=== PATIENT | male | born 1955 | race Caucasian/White ===

== ENCOUNTER 2020-11-28 12:36 | Inpatient (IN) | payer MEDICARE, MEDICAID ==
[2020-11-28] VITALS (8 sets, daily range): BP systolic 121–153; BP diastolic 66–77
[~2020-11-28] VITALS: Ht 177.8 cm; Wt 79.7 kg
[2020-11-28] MEDS ORDERED: IOHEXOL 300 MG/ML 50 ML VIAL ONE ×2 (12:52→14:45)
[2020-11-28] MEDS ORDERED: HEPARIN SODIUM 1000 UNITS/NS 0 ML ONE (12:52)
[2020-11-28] MEDS ORDERED: IOHEXOL 300 MG/ML 100 ML VIAL ONE ×2 (12:52→14:45)
[2020-11-28] MEDS ORDERED: IOHEXOL 300 MG/ML 150 ML VIAL ONE ×3 (12:52→15:47)
[2020-11-28] MEDS ORDERED: LIDOCAINE/PF 1% 30 ML VIAL ONE ×3 (12:52→15:32)
[2020-11-28] MEDS ORDERED: SODIUM BICARBONATE 50 MEQ/50 ML VIAL ONE ×2 (12:52→14:45)
[2020-11-28] MEDS ORDERED: SITA1TAB6 PO (12:56)
[2020-11-28] MEDS ORDERED: GLIM4 PO (12:56)
[2020-11-28] MEDS ORDERED: LISI-894 PO (12:56)
[2020-11-28] MEDS ORDERED: ONDANSETRON HCL 4 MG/2 ML VIAL IVP PRN ×2 (13:00→14:30)
[2020-11-28] MEDS ORDERED: ACETAMINOPHEN 325 MG TABLET PO PRN ×2 (13:00→14:30)
[2020-11-28 13:22] LABS: GLUCOMETER DEV NAME(LOC) ERT.5; GLUCOSE,POINT OF CARE 144 MG/DL (70-110)
[2020-11-28 13:38] LABS: BASOPHILS % (AUTO) 0.3 % (0.0-2.0); EOSINOPHILS % (AUTO) 1.2 % (1.0-6.0); HEMATOCRIT 48.5 % (41-53); HEMOGLOBIN 15.9 g/dL (13.5-17.5); LYMPHOCYTES # (AUTO) 2.3 K/uL (1.0-4.8); MEAN CORPUSCULAR HEMOGLOBIN 28.6 pg (26.0-34.0); MEAN CORPUSCULAR HGB CONC 32.8 G/dL (31.0-37.0); MEAN CORPUSCULAR VOLUME 87 fL (80-100); MONOCYTES % (AUTO) 7.7 % (2.0-9.0); NEUTROPHILS # (AUTO) 9.2 K/uL (1.8-7.7); NEUTROPHILS % (AUTO) 72.8 % (40.0-70.0); PLATELET COUNT (AUTO) 145 K/uL (150-450); RED BLOOD CELL COUNT(AUTO) 5.57 MIL/uL (4.50-5.90); RED CELL DISTRIBUTION WIDTH 13.7 % (11.5-14.5)
[2020-11-28 13:52] LABS: ANION GAP 5 mmol/L (8-16); CALCIUM, TOTAL 8.6 mg/dL (8.8-10.5); CARBON DIOXIDE 28 mmol/L (22-29); CHLORIDE 103 mmol/L (98-107); CREATININE 1.02 mg/dL (0.60-1.30); GLOMERULAR FILTR. RATE CALC > 60 mL/min (>60); GLUCOSE,RANDOM 155 mg/dL (70-110); POTASSIUM 3.7 mmol/L (3.5-5.1); SODIUM SERUM 136 mmol/L (136-145); UREA NITROGEN, BLOOD 19 mg/dL (7-18)
[2020-11-28 13:59] LABS: ALANINE AMINOTRANSFERASE 42 U/L (12-78); ALBUMIN 3.3 g/dL (3.4-5.0); ALKALINE PHOSPHATASE 127 U/L (46-116); ASPARTATE AMINOTRANSFERASE 135 U/L (15-37); BILIRUBIN,TOTAL 0.9 mg/dL (0.1-1.0); TOTAL PROTEIN, SERUM 7.2 g/dL (6.4-8.2)
[2020-11-28] MEDS ORDERED: DEXTROSE 50%-WATER 25 GM/50 ML SYRINGE IVP PRN (14:15)
[2020-11-28] MEDS ORDERED: SIMV-43 PO (14:20)
[2020-11-28] MEDS ORDERED: CYCL1DRO6 OU (14:20)
[2020-11-28] MEDS ORDERED: MORPHINE SULFATE 2 MG/ML SYRINGE IVP PRN (14:30)
[2020-11-28] MEDS ORDERED: HEPARIN SODIUM 1000 UNITS/NS 1,000 ML ONE (14:45)
[2020-11-28 15:10] LABS: INR 1.1 (0.9-1.1); PROTHROMBIN TIME 11.4 SEC (9.4-11.6)
[2020-11-28] MEDS ORDERED: FentaNYL CITRATE PF 100 MCG/2 ML VIAL ONE ×2 (15:32→16:14)
[2020-11-28] MEDS ORDERED: MIDAZOLAM HCL 2 MG/2 ML VIAL ONE ×2 (15:32→16:15)
[2020-11-28] MEDS ORDERED: LIDOCAINE 1% 30 ML/SOD BICARB 8.4% 4 ML SQ ONE (15:45)
[2020-11-28] MEDS ORDERED: SODIUM CHLORIDE 0.9% 500 ML IV ONE (15:45)
[2020-11-28] MEDS ORDERED: IOHEXOL 300 MG/ML 150 ML VIAL IARTER ONE (15:45)
[2020-11-28] MEDS ORDERED: MIDAZOLAM HCL 2 MG/2 ML VIAL IVP ONE ×3 (15:45→16:15)
[2020-11-28] MEDS ORDERED: HEPARIN SODIUM 1000 UNITS/NS 1,000 ML IARTER ONE (15:45)
[2020-11-28] MEDS ORDERED: FentaNYL CITRATE PF 100 MCG/2 ML VIAL IVP ONE ×3 (15:45→16:15)
[2020-11-28] MEDS ORDERED: TICAGRELOR 90 MG TABLET ONE (16:21)
[2020-11-28] MEDS ORDERED: HEPARIN SODIUM,PORCINE 5,000 UNITS/ML VIAL IVP ONE (16:45)
[2020-11-28 17:37] LABS: GLUCOMETER DEV NAME(LOC) 5N.3; GLUCOSE,POINT OF CARE 176 MG/DL (70-110)
[2020-11-28] MEDS: INSULIN LISPRO 100 UNITS/ML SQ PRN ×2 (18:08→21:56)
[2020-11-28] MEDS: DOCUSATE SODIUM 100 MG CAPSULE PO SCH (20:03)
[2020-11-28] MEDS: CARVEDILOL 6.25 MG TABLET PO SCH (20:03)
[2020-11-28] MEDS: ATORVASTATIN CALCIUM 40 MG TABLET PO SCH (20:03)
[2020-11-28] MEDS: FAMOTIDINE 20 MG TABLET PO SCH (20:03)
[2020-11-28] MEDS: TICAGRELOR 90 MG TABLET PO SCH (21:45)
[2020-11-28 22:03] LABS: GLUCOMETER DEV NAME(LOC) 5S.1; GLUCOSE,POINT OF CARE 153 MG/DL (70-110)
[2020-11-29] VITALS (7 sets, daily range): BP systolic 128–156; BP diastolic 70–89
[2020-11-29] MEDS: FAMOTIDINE 20 MG TABLET PO SCH ×2 (09:10→20:21)
[2020-11-29] MEDS: CARVEDILOL 6.25 MG TABLET PO SCH ×2 (09:10→20:21)
[2020-11-29] MEDS: DOCUSATE SODIUM 100 MG CAPSULE PO SCH ×2 (09:10→20:21)
[2020-11-29] MEDS: TICAGRELOR 90 MG TABLET PO SCH ×2 (09:10→20:21)
[2020-11-29] MEDS: INSULIN LISPRO 100 UNITS/ML SQ PRN ×3 (11:37→20:58)
[2020-11-29 12:13] LABS: BASOPHILS % (AUTO) 0.6 % (0.0-2.0); EOSINOPHILS % (AUTO) 1.6 % (1.0-6.0); HEMATOCRIT 47.4 % (41-53); HEMOGLOBIN 15.7 g/dL (13.5-17.5); LYMPHOCYTES # (AUTO) 2.1 K/uL (1.0-4.8); LYMPHOCYTES % (AUTO) 18.9 % (22.0-44.0); MEAN CORPUSCULAR HEMOGLOBIN 28.7 pg (26.0-34.0); MEAN CORPUSCULAR VOLUME 87 fL (80-100); MONOCYTES # (AUTO) 0.9 K/uL (0.1-1.0); MONOCYTES % (AUTO) 7.7 % (2.0-9.0); NEUTROPHILS # (AUTO) 7.9 K/uL (1.8-7.7); NEUTROPHILS % (AUTO) 71.2 % (40.0-70.0); PLATELET COUNT (AUTO) 139 K/uL (150-450); RED BLOOD CELL COUNT(AUTO) 5.45 MIL/uL (4.50-5.90); RED CELL DISTRIBUTION WIDTH 13.8 % (11.5-14.5)
[2020-11-29 12:21] LABS: ANION GAP 4 mmol/L (8-16); CALCIUM, TOTAL 8.2 mg/dL (8.8-10.5); CARBON DIOXIDE 28 mmol/L (22-29); CHLORIDE 102 mmol/L (98-107); CREATININE 1.08 mg/dL (0.60-1.30); GLOMERULAR FILTR. RATE CALC > 60 mL/min (>60); GLUCOSE,RANDOM 158 mg/dL (70-110); POTASSIUM 3.8 mmol/L (3.5-5.1); SODIUM SERUM 134 mmol/L (136-145); UREA NITROGEN, BLOOD 18 mg/dL (7-18)
[2020-11-29 12:22] LABS: GLUCOMETER DEV NAME(LOC) 5S.1; GLUCOSE,POINT OF CARE 151 MG/DL (70-110)
[2020-11-29 12:28] LABS: ALANINE AMINOTRANSFERASE 36 U/L (12-78); ALBUMIN 2.9 g/dL (3.4-5.0); ALKALINE PHOSPHATASE 116 U/L (46-116); ASPARTATE AMINOTRANSFERASE 80 U/L (15-37); BILIRUBIN,TOTAL 1.2 mg/dL (0.1-1.0); TOTAL PROTEIN, SERUM 6.7 g/dL (6.4-8.2)
[2020-11-29 19:47] LABS: GLUCOMETER DEV NAME(LOC) 5N.1C; GLUCOSE,POINT OF CARE 116 MG/DL (70-110)
[2020-11-29 19:48] LABS: GLUCOMETER DEV NAME(LOC) 5N.1C; GLUCOSE,POINT OF CARE 167 MG/DL (70-110)
[2020-11-29] MEDS: ATORVASTATIN CALCIUM 40 MG TABLET PO SCH (20:21)
[2020-11-29 21:37] LABS: GLUCOMETER DEV NAME(LOC) 5S.1; GLUCOSE,POINT OF CARE 200 MG/DL (70-110)
[2020-11-29] MEDS ORDERED: LOSA25TA21 PO (23:50)
[2020-11-30] MEDS: INSULIN LISPRO 100 UNITS/ML SQ PRN ×4 (05:58→20:50)
[2020-11-30 06:06] VITALS: BP 157/83
[2020-11-30 06:17] LABS: GLUCOMETER DEV NAME(LOC) 5S.2B; GLUCOSE,POINT OF CARE 149 MG/DL (70-110)
[2020-11-30 07:09] VITALS: BP 160/85
[2020-11-30] MEDS: FAMOTIDINE 20 MG TABLET PO SCH ×2 (08:05→20:38)
[2020-11-30] MEDS: DOCUSATE SODIUM 100 MG CAPSULE PO SCH ×2 (08:05→20:38)
[2020-11-30] MEDS: TICAGRELOR 90 MG TABLET PO SCH ×2 (08:05→20:40)
[2020-11-30] MEDS: CARVEDILOL 6.25 MG TABLET PO SCH (08:05)
[2020-11-30] MEDS ORDERED: CARVEDILOL 6.25 MG TABLET PO ONE (10:00)
[2020-11-30 11:53] VITALS: BP 151/77
[2020-11-30 12:34] LABS: GLUCOMETER DEV NAME(LOC) 5S.1; GLUCOSE,POINT OF CARE 137 MG/DL (70-110)
[2020-11-30 12:34] LABS: GLUCOMETER DEV NAME(LOC) 5S.1; GLUCOSE,POINT OF CARE 229 MG/DL (70-110)
[2020-11-30 15:11] VITALS: BP 152/74
[2020-11-30 15:21] LABS: COVID AG,FIA SOURCE NASOPHARYNGEAL
[2020-11-30 19:16] VITALS: BP 147/81
[2020-11-30] MEDS: CARVEDILOL 12.5 MG TABLET PO SCH (20:38)
[2020-11-30] MEDS: ATORVASTATIN CALCIUM 40 MG TABLET PO SCH (20:38)
[2020-11-30 23:14] VITALS: BP 144/75
[2020-12-01 05:10] VITALS: BP 153/78
[2020-12-01 07:31] LABS: BASOPHILS % (AUTO) 0.6 % (0.0-2.0); EOSINOPHILS % (AUTO) 3.2 % (1.0-6.0); HEMATOCRIT 48.7 % (41-53); LYMPHOCYTES # (AUTO) 1.7 K/uL (1.0-4.8); LYMPHOCYTES % (AUTO) 14.2 % (22.0-44.0); MEAN CORPUSCULAR HEMOGLOBIN 28.4 pg (26.0-34.0); MEAN CORPUSCULAR HGB CONC 32.9 G/dL (31.0-37.0); MEAN CORPUSCULAR VOLUME 86 fL (80-100); MONOCYTES # (AUTO) 1.1 K/uL (0.1-1.0); MONOCYTES % (AUTO) 9.1 % (2.0-9.0); NEUTROPHILS # (AUTO) 8.6 K/uL (1.8-7.7); NEUTROPHILS % (AUTO) 72.9 % (40.0-70.0); PLATELET COUNT (AUTO) 165 K/uL (150-450); RED BLOOD CELL COUNT(AUTO) 5.65 MIL/uL (4.50-5.90); RED CELL DISTRIBUTION WIDTH 13.7 % (11.5-14.5)
[2020-12-01 07:39] VITALS: BP 148/82
[2020-12-01 07:40] LABS: ANION GAP 10 mmol/L (8-16); CALCIUM, TOTAL 9.1 mg/dL (8.8-10.5); CARBON DIOXIDE 26 mmol/L (22-29); CHLORIDE 100 mmol/L (98-107); CREATININE 0.99 mg/dL (0.60-1.30); GLOMERULAR FILTR. RATE CALC > 60 mL/min (>60); GLUCOSE,RANDOM 128 mg/dL (70-110); POTASSIUM 3.6 mmol/L (3.5-5.1); SODIUM SERUM 136 mmol/L (136-145); UREA NITROGEN, BLOOD 22 mg/dL (7-18)
[2020-12-01 07:46] LABS: ALANINE AMINOTRANSFERASE 38 U/L (12-78); ALBUMIN 3.2 g/dL (3.4-5.0); ALKALINE PHOSPHATASE 151 U/L (46-116); ASPARTATE AMINOTRANSFERASE 52 U/L (15-37); BILIRUBIN,TOTAL 1.2 mg/dL (0.1-1.0); TOTAL PROTEIN, SERUM 7.2 g/dL (6.4-8.2)
[2020-12-01] MEDS: CARVEDILOL 12.5 MG TABLET PO SCH ×2 (10:43→20:06)
[2020-12-01] MEDS: TICAGRELOR 90 MG TABLET PO SCH ×2 (10:43→20:06)
[2020-12-01] MEDS: FAMOTIDINE 20 MG TABLET PO SCH ×2 (10:43→20:06)
[2020-12-01] MEDS: DOCUSATE SODIUM 100 MG CAPSULE PO SCH ×2 (10:43→20:05)
[2020-12-01 11:03] VITALS: BP 151/91
[2020-12-01] MEDS: INSULIN LISPRO 100 UNITS/ML SQ PRN ×3 (12:04→20:07)
[2020-12-01 15:08] VITALS: BP 150/77
[2020-12-01] MEDS ORDERED: NEOMYCIN/BACITRACIN/POLYMYXIN B OINTMENT PACKET TP ONE (17:15)
[2020-12-01 18:15] LABS: GLUCOMETER DEV NAME(LOC) 5S.1; GLUCOSE,POINT OF CARE 226 MG/DL (70-110)
[2020-12-01 18:15] LABS: GLUCOMETER DEV NAME(LOC) 5S.1; GLUCOSE,POINT OF CARE 210 MG/DL (70-110)
[2020-12-01 18:16] LABS: GLUCOMETER DEV NAME(LOC) 5S.1; GLUCOSE,POINT OF CARE 189 MG/DL (70-110)
[2020-12-01 18:16] LABS: GLUCOMETER DEV NAME(LOC) 5S.1; GLUCOSE,POINT OF CARE 126 MG/DL (70-110)
[2020-12-01 18:20] LABS: GLUCOMETER DEV NAME(LOC) 5S.1; GLUCOSE,POINT OF CARE 253 MG/DL (70-110)
[2020-12-01 19:47] VITALS: BP 152/75
[2020-12-01] MEDS: ATORVASTATIN CALCIUM 40 MG TABLET PO SCH (20:05)
[2020-12-01] MEDS ORDERED: LIDOCAINE 1% 20 ML VIAL SQ ONE (20:30)
[2020-12-02] VITALS (7 sets, daily range): BP systolic 114–153; BP diastolic 64–78
[2020-12-02 01:03] LABS: GLUCOMETER DEV NAME(LOC) 5N.1C; GLUCOSE,POINT OF CARE 257 MG/DL (70-110)
[2020-12-02] MEDS: INSULIN LISPRO 100 UNITS/ML SQ PRN ×4 (05:53→21:23)
[2020-12-02 06:39] LABS: GLUCOMETER DEV NAME(LOC) 5S.1; GLUCOSE,POINT OF CARE 212 MG/DL (70-110)
[2020-12-02] MEDS: CARVEDILOL 12.5 MG TABLET PO SCH ×2 (09:16→21:21)
[2020-12-02] MEDS: DOCUSATE SODIUM 100 MG CAPSULE PO SCH ×2 (09:16→21:20)
[2020-12-02] MEDS: TICAGRELOR 90 MG TABLET PO SCH ×2 (09:16→21:20)
[2020-12-02] MEDS: FAMOTIDINE 20 MG TABLET PO SCH ×2 (09:16→21:20)
[2020-12-02 13:52] LABS: GLUCOMETER DEV NAME(LOC) 5S.2B; GLUCOSE,POINT OF CARE 210 MG/DL (70-110)
[2020-12-02] MEDS: ATORVASTATIN CALCIUM 40 MG TABLET PO SCH (21:20)
[2020-12-02 22:06] LABS: GLUCOMETER DEV NAME(LOC) 5S.1; GLUCOSE,POINT OF CARE 195 MG/DL (70-110)
[2020-12-02 22:06] LABS: GLUCOMETER DEV NAME(LOC) 5S.1; GLUCOSE,POINT OF CARE 258 MG/DL (70-110)
[2020-12-03 04:13] VITALS: BP 154/78
[2020-12-03] MEDS: INSULIN LISPRO 100 UNITS/ML SQ PRN ×4 (06:31→21:41)
[2020-12-03 07:42] VITALS: BP 138/78
[2020-12-03] MEDS: FAMOTIDINE 20 MG TABLET PO SCH ×2 (08:34→21:05)
[2020-12-03] MEDS: DOCUSATE SODIUM 100 MG CAPSULE PO SCH ×2 (08:34→21:05)
[2020-12-03] MEDS: TICAGRELOR 90 MG TABLET PO SCH ×2 (08:34→21:05)
[2020-12-03] MEDS: CARVEDILOL 12.5 MG TABLET PO SCH ×2 (08:34→21:05)
[2020-12-03 10:38] LABS: BASOPHILS % (AUTO) 0.6 % (0.0-2.0); EOSINOPHILS % (AUTO) 2.6 % (1.0-6.0); HEMATOCRIT 48.7 % (41-53); HEMOGLOBIN 16.3 g/dL (13.5-17.5); LYMPHOCYTES # (AUTO) 1.5 K/uL (1.0-4.8); MEAN CORPUSCULAR HGB CONC 33.5 G/dL (31.0-37.0); MEAN CORPUSCULAR VOLUME 86 fL (80-100); MONOCYTES # (AUTO) 1.1 K/uL (0.1-1.0); MONOCYTES % (AUTO) 8.1 % (2.0-9.0); NEUTROPHILS # (AUTO) 10.3 K/uL (1.8-7.7); NEUTROPHILS % (AUTO) 77.7 % (40.0-70.0); PLATELET COUNT (AUTO) 186 K/uL (150-450); RED BLOOD CELL COUNT(AUTO) 5.63 MIL/uL (4.50-5.90); RED CELL DISTRIBUTION WIDTH 13.6 % (11.5-14.5)
[2020-12-03 10:51] VITALS: BP 154/79
[2020-12-03 10:54] LABS: ANION GAP 8 mmol/L (8-16); CALCIUM, TOTAL 8.9 mg/dL (8.8-10.5); CARBON DIOXIDE 27 mmol/L (22-29); CHLORIDE 99 mmol/L (98-107); CREATININE 1.13 mg/dL (0.60-1.30); GLOMERULAR FILTR. RATE CALC > 60 mL/min (>60); GLUCOSE,RANDOM 188 mg/dL (70-110); POTASSIUM 3.9 mmol/L (3.5-5.1); SODIUM SERUM 134 mmol/L (136-145); UREA NITROGEN, BLOOD 24 mg/dL (7-18)
[2020-12-03 11:02] LABS: ALANINE AMINOTRANSFERASE 58 U/L (12-78); ALBUMIN 3.3 g/dL (3.4-5.0); ALKALINE PHOSPHATASE 251 U/L (46-116); ASPARTATE AMINOTRANSFERASE 51 U/L (15-37); BILIRUBIN,TOTAL 1.1 mg/dL (0.1-1.0); TOTAL PROTEIN, SERUM 8.1 g/dL (6.4-8.2)
[2020-12-03] MEDS: LEVOFLOXACIN 500 MG TABLET PO SCH (12:08)
[2020-12-03 15:34] VITALS: BP 151/78
[2020-12-03] MEDS: MetFORMIN HCL 500 MG TABLET PO SCH (17:20)
[2020-12-03] MEDS: GLIMEPIRIDE 4 MG TABLET PO SCH (17:21)
[2020-12-03] MEDS: SitaGLIPtin PHOSPHATE 50 MG TABLET PO SCH (17:24)
[2020-12-03] MEDS ORDERED: MISC MED-CONVERTED FROM AMBULATORY (Sitagliptin Phos/Metformin HCl (Janumet 50-1,000 mg Ta PO SCH (18:00)
[2020-12-03 19:32] VITALS: BP 153/79
[2020-12-03 20:37] LABS: GLUCOMETER DEV NAME(LOC) 5N.1C; GLUCOSE,POINT OF CARE 204 MG/DL (70-110)
[2020-12-03 20:37] LABS: GLUCOMETER DEV NAME(LOC) 5N.1C; GLUCOSE,POINT OF CARE 240 MG/DL (70-110)
[2020-12-03] MEDS: ATORVASTATIN CALCIUM 40 MG TABLET PO SCH (21:05)
[2020-12-03 23:52] VITALS: BP 133/69
[2020-12-04 00:53] LABS: GLUCOMETER DEV NAME(LOC) 5S.1; GLUCOSE,POINT OF CARE 197 MG/DL (70-110)
[2020-12-04 00:53] LABS: GLUCOMETER DEV NAME(LOC) 5S.1; GLUCOSE,POINT OF CARE 183 MG/DL (70-110)
[2020-12-04 04:24] VITALS: BP 144/78
[2020-12-04] MEDS: INSULIN LISPRO 100 UNITS/ML SQ PRN ×2 (06:25→11:30)
[2020-12-04 06:41] LABS: GLUCOMETER DEV NAME(LOC) 5S.2B; GLUCOSE,POINT OF CARE 165 MG/DL (70-110)
[2020-12-04 07:01] LABS: BASOPHILS % (AUTO) 0.5 % (0.0-2.0); HEMATOCRIT 46.7 % (41-53); HEMOGLOBIN 15.7 g/dL (13.5-17.5); LYMPHOCYTES # (AUTO) 1.6 K/uL (1.0-4.8); LYMPHOCYTES % (AUTO) 12.1 % (22.0-44.0); MEAN CORPUSCULAR HEMOGLOBIN 28.9 pg (26.0-34.0); MEAN CORPUSCULAR HGB CONC 33.7 G/dL (31.0-37.0); MEAN CORPUSCULAR VOLUME 86 fL (80-100); MONOCYTES # (AUTO) 1.1 K/uL (0.1-1.0); MONOCYTES % (AUTO) 8.2 % (2.0-9.0); NEUTROPHILS # (AUTO) 9.8 K/uL (1.8-7.7); NEUTROPHILS % (AUTO) 76.2 % (40.0-70.0); PLATELET COUNT (AUTO) 183 K/uL (150-450); RED BLOOD CELL COUNT(AUTO) 5.44 MIL/uL (4.50-5.90); RED CELL DISTRIBUTION WIDTH 13.7 % (11.5-14.5)
[2020-12-04 07:19] LABS: ALANINE AMINOTRANSFERASE 52 U/L (12-78); ALBUMIN 2.9 g/dL (3.4-5.0); ALKALINE PHOSPHATASE 237 U/L (46-116); ANION GAP 9 mmol/L (8-16); ASPARTATE AMINOTRANSFERASE 44 U/L (15-37); CALCIUM, TOTAL 8.6 mg/dL (8.8-10.5); CARBON DIOXIDE 28 mmol/L (22-29); CHLORIDE 102 mmol/L (98-107); CREATININE 1.09 mg/dL (0.60-1.30); GLOMERULAR FILTR. RATE CALC > 60 mL/min (>60); GLUCOSE,RANDOM 165 mg/dL (70-110); POTASSIUM 3.7 mmol/L (3.5-5.1); SODIUM SERUM 139 mmol/L (136-145); TOTAL PROTEIN, SERUM 7.3 g/dL (6.4-8.2); UREA NITROGEN, BLOOD 25 mg/dL (7-18)
[2020-12-04 07:49] VITALS: BP 141/69
[2020-12-04] MEDS: MetFORMIN HCL 500 MG TABLET PO SCH ×2 (08:44→17:35)
[2020-12-04] MEDS: TICAGRELOR 90 MG TABLET PO SCH ×2 (08:44→20:07)
[2020-12-04] MEDS: FAMOTIDINE 20 MG TABLET PO SCH ×2 (08:44→20:07)
[2020-12-04] MEDS: SitaGLIPtin PHOSPHATE 50 MG TABLET PO SCH ×2 (08:44→17:35)
[2020-12-04] MEDS: GLIMEPIRIDE 4 MG TABLET PO SCH ×2 (08:44→17:35)
[2020-12-04] MEDS: LEVOFLOXACIN 500 MG TABLET PO SCH (08:44)
[2020-12-04] MEDS: DOCUSATE SODIUM 100 MG CAPSULE PO SCH ×3 (08:45→20:21)
[2020-12-04] MEDS: CARVEDILOL 12.5 MG TABLET PO SCH ×2 (08:45→20:11)
[2020-12-04] MEDS ORDERED: LISINOPRIL 10 MG TABLET PO SCH (09:00)
[2020-12-04 11:17] VITALS: BP 120/60
[2020-12-04] MEDS ORDERED: ATOR40TA28 PO (12:58)
[2020-12-04] MEDS ORDERED: CARV12 PO (12:58)
[2020-12-04] MEDS ORDERED: FAMO20 PO (12:58)
[2020-12-04] MEDS ORDERED: GLIM4 PO (12:59)
[2020-12-04] MEDS ORDERED: LISI-893 PO (12:59)
[2020-12-04] MEDS ORDERED: LEVO-72 PO (12:59)
[2020-12-04] MEDS ORDERED: ACET-2247 PO (13:00)
[2020-12-04] MEDS ORDERED: TICA90TA PO (13:00)
[2020-12-04] MEDS ORDERED: INSU100V SQ (13:01)
[2020-12-04 14:51] VITALS: BP 118/68
[2020-12-04] MEDS: ATORVASTATIN CALCIUM 40 MG TABLET PO SCH (20:07)
[2020-12-04 20:10] VITALS: BP 107/55
[2020-12-04 22:37] LABS: GLUCOMETER DEV NAME(LOC) 5N.1C; GLUCOSE,POINT OF CARE 68 MG/DL (70-110)
[2020-12-04 22:38] LABS: GLUCOMETER DEV NAME(LOC) 5S.1; GLUCOSE,POINT OF CARE 79 MG/DL (70-110)
[2020-12-04 22:38] LABS: GLUCOMETER DEV NAME(LOC) 5S.1; GLUCOSE,POINT OF CARE 152 MG/DL (70-110)
[2020-12-05 00:38] VITALS: BP 125/64
[2020-12-05 04:50] VITALS: BP 136/62
[2020-12-05 06:02] LABS: GLUCOMETER DEV NAME(LOC) 5N.1C; GLUCOSE,POINT OF CARE 63 MG/DL (70-110)
[2020-12-05 07:30] LABS: BASOPHILS % (AUTO) 0.3 % (0.0-2.0); EOSINOPHILS % (AUTO) 1.6 % (1.0-6.0); HEMATOCRIT 50.7 % (41-53); HEMOGLOBIN 16.8 g/dL (13.5-17.5); LYMPHOCYTES # (AUTO) 1.8 K/uL (1.0-4.8); LYMPHOCYTES % (AUTO) 11.9 % (22.0-44.0); MEAN CORPUSCULAR HEMOGLOBIN 28.9 pg (26.0-34.0); MEAN CORPUSCULAR HGB CONC 33.2 G/dL (31.0-37.0); MEAN CORPUSCULAR VOLUME 87 fL (80-100); MONOCYTES # (AUTO) 1.6 K/uL (0.1-1.0); MONOCYTES % (AUTO) 10.6 % (2.0-9.0); NEUTROPHILS # (AUTO) 11.2 K/uL (1.8-7.7); NEUTROPHILS % (AUTO) 75.6 % (40.0-70.0); PLATELET COUNT (AUTO) 231 K/uL (150-450); RED BLOOD CELL COUNT(AUTO) 5.81 MIL/uL (4.50-5.90); RED CELL DISTRIBUTION WIDTH 13.8 % (11.5-14.5)
[2020-12-05 07:46] LABS: ALBUMIN 3.3 g/dL (3.4-5.0); BILIRUBIN,TOTAL 0.8 mg/dL (0.1-1.0); CREATININE 1.24 mg/dL (0.60-1.30); POTASSIUM 3.9 mmol/L (3.5-5.1); TOTAL PROTEIN, SERUM 8.1 g/dL (6.4-8.2)
[2020-12-05 15:40] LABS: GLUCOMETER DEV NAME(LOC) 5S.1; GLUCOSE,POINT OF CARE 60 MG/DL (70-110)
[2020-12-05 15:40] LABS: GLUCOMETER DEV NAME(LOC) 5S.1; GLUCOSE,POINT OF CARE 86 MG/DL (70-110)
== END 2020-12-05 07:15 | DRG 246 ==
LOC: EMS 12:36 → 5S 16:35
PROVIDERS: ADMIT Internal Medicine; ATTEND Internal Medicine
PROC: 4A023N7 Measurement of Cardiac Sampling and Pressure, Left Heart, Percutaneous Approach (ICD-10-PCS; principal; 2020-11-28)
PROC: 027135Z Dilation of Coronary Artery, Two Arteries with Two Drug-eluting Intraluminal Devices, Percutaneous Approach (ICD-10-PCS; 2020-11-28)
PROC: B211YZZ Fluoroscopy of Multiple Coronary Arteries using Other Contrast (ICD-10-PCS; 2020-11-28)
PROC: B41FYZZ Fluoroscopy of Right Lower Extremity Arteries using Other Contrast (ICD-10-PCS; 2020-11-28)
PROC: 0Y9M0ZZ Drainage of Right Foot, Open Approach (ICD-10-PCS; 2020-12-02)
DX: I21.4 Non-ST elevation (NSTEMI) myocardial infarction (principal); E43 Unspecified severe protein-calorie malnutrition; I10 Essential (primary) hypertension; E11.9 Type 2 diabetes mellitus without complications; D72.829 Elevated white blood cell count, unspecified; R55 Syncope and collapse; S90.822A Blister (nonthermal), left foot, initial encounter; L55.9 Sunburn, unspecified; S90.821A Blister (nonthermal), right foot, initial encounter; R23.8 Other skin changes; Z20.822 Contact with and (suspected) exposure to COVID-19; X08.8XXA Exposure to other specified smoke, fire and flames, initial encounter; I25.10 Atherosclerotic heart disease of native coronary artery without angina pectoris; I25.2 Old myocardial infarction; Z79.899 Other long term (current) drug therapy; Y93.89 Activity, other specified; Y92.89 Other specified places as the place of occurrence of the external cause; Y99.8 Other external cause status
CPT/HCPCS: 71045; 80053; 82962; 83880; 84484; 85025; 85610; 85730; 92920; 92928; 93005; 93306; 93925; 93970; 97110; 97116; 97162; 97530; 99285; J1644; J2250; J3010; J3490; Q9967; 36415-L1; 36415-TC

== ENCOUNTER 2021-09-04 07:38 | Day surgery (SDC) | payer MEDICARE, MEDICAID ==
[~2021-09-04] VITALS: Ht 175.3 cm; Wt 59.0 kg
[~2021-09-04 07:38] MED LIST: ACET-2247 PO; ATOR40TA28 PO; CARV12 PO; CYCL1DRO6 OU; FAMO20 PO; GLIM4 PO; INSU100V SQ; LEVO-72 PO; LISI-893 PO; SITA1TAB6 PO; SODIUM CHLORIDE 0.9% 1,000 ML IV ONE; SODIUM CHLORIDE 0.9% 1,000 ML ONE; TICA90TA PO
[2021-09-04 08:03] LABS: COVID AG,FIA SOURCE NASOPHARYNGEAL
[2021-09-04 08:15] LABS: BASOPHILS % (AUTO) 0.5 % (0.0-2.0); EOSINOPHILS % (AUTO) 4.7 % (1.0-6.0); HEMATOCRIT 37.2 % (41-53); HEMOGLOBIN 12.3 g/dL (13.5-17.5); LYMPHOCYTES # (AUTO) 1.4 K/uL (1.0-4.8); LYMPHOCYTES % (AUTO) 13.7 % (22.0-44.0); MEAN CORPUSCULAR VOLUME 88 fL (80-100); MONOCYTES # (AUTO) 0.6 K/uL (0.1-1.0); MONOCYTES % (AUTO) 6.1 % (2.0-9.0); NEUTROPHILS # (AUTO) 7.7 K/uL (1.8-7.7); PLATELET COUNT (AUTO) 188 K/uL (150-450); RED BLOOD CELL COUNT(AUTO) 4.23 MIL/uL (4.50-5.90); RED CELL DISTRIBUTION WIDTH 14.9 % (11.5-14.5)
[2021-09-04 08:24] LABS: ANION GAP 7 mmol/L (8-16); CALCIUM, TOTAL 9.2 mg/dL (8.8-10.5); CARBON DIOXIDE 24 mmol/L (22-29); CHLORIDE 104 mmol/L (98-107); CREATININE 1.13 mg/dL (0.60-1.30); GLUCOSE,RANDOM 131 mg/dL (70-110); POTASSIUM 4.4 mmol/L (3.5-5.1); SODIUM SERUM 135 mmol/L (136-145); UREA NITROGEN, BLOOD 29 mg/dL (7-18)
[2021-09-04 08:26] LABS: GLOMERULAR FILTR. RATE CALC > 60 mL/min (>60)
[2021-09-04 08:29] LABS: ALANINE AMINOTRANSFERASE 34 U/L (12-78); ALBUMIN 3.6 g/dL (3.4-5.0); ALKALINE PHOSPHATASE 207 U/L (46-116); ASPARTATE AMINOTRANSFERASE 14 U/L (15-37); BILIRUBIN,TOTAL 0.4 mg/dL (0.1-1.0); TOTAL PROTEIN, SERUM 7.7 g/dL (6.4-8.2)
[2021-09-04 08:37] LABS: INR 1.1 (0.9-1.1); PROTHROMBIN TIME 11.8 SEC (9.4-11.6)
[2021-09-04 09:16] LABS: GLUCOMETER DEV NAME(LOC) SDS.; GLUCOSE,POINT OF CARE 111 MG/DL (70-110)
[2021-09-04] MEDS ORDERED: DIAZEPAM 5 MG TABLET PO ONE (09:21)
[2021-09-04] MEDS ORDERED: DiphenhydrAMINE HCL 50 MG CAPSULE PO ONE (09:22)
[2021-09-04] MEDS ORDERED: ASPIRIN 81 MG CHEWABLE TABLET PO ONE (09:22)
[2021-09-04] MEDS ORDERED: ASPIRIN 81 MG CHEWABLE TABLET ONE (09:29)
[2021-09-04] MEDS ORDERED: SODIUM CHLORIDE 0.9% 1,000 ML IV ONE (09:30)
[2021-09-04] MEDS ORDERED: DiphenhydrAMINE HCL 50 MG CAPSULE ONE (09:30)
[2021-09-04] MEDS ORDERED: DIAZEPAM 5 MG TABLET ONE (09:30)
[2021-09-04] MEDS ORDERED: HEPARIN SODIUM 1000 UNITS/NS 1,000 ML ONE (10:03)
[2021-09-04] MEDS ORDERED: LIDOCAINE/PF 1% 30 ML VIAL ONE (10:03)
[2021-09-04] MEDS ORDERED: IOHEXOL 300 MG/ML 150 ML VIAL ONE (10:03)
[2021-09-04] MEDS ORDERED: SODIUM BICARBONATE 50 MEQ/50 ML VIAL ONE (10:03)
[2021-09-04] MEDS ORDERED: MIDAZOLAM HCL 2 MG/2 ML VIAL ONE (10:12)
[2021-09-04] MEDS ORDERED: FentaNYL CITRATE PF 100 MCG/2 ML VIAL ONE (10:12)
[2021-09-04] MEDS ORDERED: HEPARIN SODIUM 1000 UNITS/NS 1,000 ML IARTER ONE (10:15)
[2021-09-04] MEDS ORDERED: IOHEXOL 300 MG/ML 150 ML VIAL ICOR ONE (10:15)
[2021-09-04] MEDS ORDERED: SODIUM BICARBONATE 50 MEQ/50 ML VIAL SQ ONE (10:15)
[2021-09-04] MEDS ORDERED: LIDOCAINE 1% 20 ML VIAL SQ ONE (10:15)
[2021-09-04] MEDS ORDERED: FentaNYL CITRATE PF 100 MCG/2 ML VIAL IVP ONE ×2 (10:30→11:00)
[2021-09-04] MEDS ORDERED: MIDAZOLAM HCL 2 MG/2 ML VIAL IVP ONE ×2 (10:30→11:00)
[2021-09-04] MEDS ORDERED: IOHEXOL 300 MG/ML 100 ML VIAL ONE (10:45)
[2021-09-04] MEDS ORDERED: IOHEXOL 300 MG/ML 100 ML VIAL ICOR ONE (10:45)
[2021-09-04] MEDS ORDERED: HEPARIN SODIUM,PORCINE 5,000 UNITS/ML VIAL IVP ONE ×2 (10:45→11:00)
[2021-09-04] MEDS ORDERED: IOHEXOL 300 MG/ML 50 ML VIAL ONE (10:49)
[2021-09-04] MEDS ORDERED: TICAGRELOR 90 MG TABLET ONE (11:01)
[2021-09-04] MEDS ORDERED: TICAGRELOR 90 MG TABLET PO ONE (11:15)
== END 2021-09-04 18:15 | disposition home or self-care (01) ==
LOC: CATHLAB 07:38
PROVIDERS: ATTEND Internal Medicine Interventional Cardiology
DX: I25.10 Atherosclerotic heart disease of native coronary artery without angina pectoris (principal); I10 Essential (primary) hypertension; I25.2 Old myocardial infarction; E11.9 Type 2 diabetes mellitus without complications; Z82.3 Family history of stroke; Z98.890 Other specified postprocedural states; Z79.899 Other long term (current) drug therapy
CPT/HCPCS: 36415; 80053; 82962; 85025; 85610; 85730; 87426; 92978; 92979; 93005; 93458; 99152; 99153; C1753; C1757; C1760; C1874; C1887; C9600; C9803; J1644; J2250; J3010; J3490; J7030; Q9967 ×3; 75960; 92920; 92928